=== PATIENT | female | born 1960 | race Caucasian/White ===

== ENCOUNTER 2017-04-20 19:30 | Emergency (ER) | payer SELFPAY ==
[~2017-04-20] VITALS: Ht 167.6 cm; Wt 97.5 kg
[2017-04-20] MEDS ORDERED: Ketorolac 30mg Inj IV ONE (20:15)
[2017-04-20] MEDS ORDERED: Morphine Sulfate 4mg/ml Inj IVP ONE (20:15)
[2017-04-20] MEDS ORDERED: Metoclopramide 10mg/2ml Inj IVP ONE (20:15)
[2017-04-20] MEDS: Tamsulosin 0.4mg cap ORAL SCH ×2 (20:35→20:40)
[2017-04-20 20:57] LABS: APPEARANCE,URINE CLEAR; KETONES,URINE NEGATIVE (NEGATIVE); LEUKOCYTE ESTERASE ,URINE 2+ (NEGATIVE); NITRITE,URINE NEGATIVE (NEGATIVE); PH,URINE 6.5 (4.5-8.0); PROTEIN,URINE 1+ (NEGATIVE); UROBILINOGEN,URINE NORMAL MG/DL (0.0-1.0)
[2017-04-20 21:04] LABS: MEAN CORPUSCULAR HEMOGLOBIN 30.3 PG (27.0-31.0); MEAN CORPUSCULAR VOLUME 89 FL (80-99); MEAN PLATELET VOLUME 6.6 FL (6.5-10.1); PLATELET COUNT 268 K/UL (150-450); RED BLOOD COUNT 4.84 M/UL (4.20-5.40); RED CELL DISTRIBUTION WIDTH 11.1 % (11.6-14.8); WHITE BLOOD COUNT 16.7 K/UL (4.8-10.8)
[2017-04-20 21:06] LABS: BASOPHILS % (AUTO) 0.6 % (0.0-2.0); LYMPHOCYTES % (AUTO) 7.4 % (20.0-45.0); MONOCYTES % (AUTO) 5.4 % (1.0-10.0); NEUTROPHILS % (AUTO) 86.5 % (45.0-75.0)
[2017-04-20 21:21] LABS: ALBUMIN/GLOBULIN RATIO 1.2 (1.0-2.7); CALCIUM 9.4 mg/dL (8.6-10.2); CREATININE 1.3 mg/dL (0.5-0.9); GLOMERULAR FILTRATION RATE 42.4 mL/min (>60); POTASSIUM 3.8 mEQ/L (3.4-4.9); TOTAL PROTEIN 7.5 g/dL (6.6-8.7)
[2017-04-20 21:30] LABS: BACTERIA,URINE MANY /HPF; SQUAMOUS EPITHELIAL CELL,UR MANY /LPF (NONE/OCC)
[2017-04-20 21:47] LABS: BILIRUBIN,DIRECT 0.2 mg/dL (0.1-0.3)
[2017-04-20] MEDS ORDERED: cefTRIAXone 1 GM in NS 55 ML IVPB ONE (22:15)
[2017-04-20] MEDS ORDERED: KEFLEX500 MG ORAL (23:14)
[2017-04-20] MEDS ORDERED: NORCO 5-325 TA1 EACH ORAL (23:14)
[2017-04-20] MEDS ORDERED: TAMSULOSIN HCL0.4 MG ORAL (23:14)
[2017-04-20 23:50] VITALS: BP 156/80
--- NOTE | 2017-04-21 00:39 | Emergency Room Report ---
History of Present Illness General Chief Complaint: Lower Back Pain or Injury Source: Patient Present Illness HPI Patient 56 is-year-old female who presented after increased left sided flank pain. She reports having increased vomiting intermittently. Pain began approximately 3 days ago. Patient had not been moved in location. She had having any hematemesis or fever. She denied any chills. She denied any dysuria are discolored urine. She prior history of kidney stones. Had prior lithotripsy Allergies: Coded Allergies: No Known Allergies (Unverified , 04/20/17) Patient History Past Medical History: see triage record Last Menstrual Period: NONE ANYMORE Now: No : 3 Reviewed Nursing Documentation: PMH: Agreed, PSxH: Agreed Review of Systems All Other Systems: negative except mentioned in HPI Physical Exam Vital Signs Date Time Temp Pulse Resp B/P Pulse Ox O2 Delivery O2 Flow Rate FiO2 04/20/17 19:46 99.0 88 18 160/82 97 Room Air Sp02 EP Interpretation: reviewed, normal General Appearance: normal inspection, well appearing, no apparent distress, alert, GCS 15, obese Head: atraumatic ENT: normal ENT inspection, hearing grossly normal, normal voice Neck: normal inspection, full range of motion, supple, no bony tend Respiratory: normal inspection, lungs clear, normal breath sounds, no respiratory distress, no retraction, no wheezing Cardiovascular #1: regular rate, rhythm, no edema Gastrointestinal: normal inspection, normal bowel sounds, non tender, soft, no guarding, no hernia Genitourinary: no CVA tenderness Musculoskeletal: normal inspection, back normal, normal range of motion Neurologic: normal inspection, alert, oriented x3, responsive, sign carpenter III-XII nml as tested, motor strength/tone normal, speech normal Psychiatric: normal inspection, judgement/insight normal, mood/affect normal Skin: normal inspection, normal color, no rash Medical Decision Making Diagnostic Impression: Primary Impression: Renal calculus Additional Impressions: Fatty liver Splenomegaly ER Course Patient presented for flank pain. Differential diagnosis included was not limited to pneumonia, renal stone, rib fracture, pulmonary embolism, ulcer, enteritis, pyelonephritis among others. Because of complexity of patient's case laboratory testing and imaging studies were ordered. I laboratory testing showed mildly elevated white blood count. Patient was given IV Rocephin. I urinalysis showed evidence of minimal urinary tract infection. CT the head and pelvis read by radiology shows 6 mm left renal stone as well as fatty liver and enlarged spleen. The patient is advised dietary modification. The patient was given medications as per orders and stated that she felt better want to go home. The patient is advised return precautions. Last Vital Signs Date Time Temp Pulse Resp B/P Pulse Ox O2 Delivery O2 Flow Rate FiO2 04/20/17 23:50 99.0 89 18 156/80 97 Room Air Status: improved Disposition: HOME, SELF-CARE Condition: Stable Scripts Hydrocodone Bit/Acetaminophen 5-325* (NORCO 5-325*) 1 Each Tablet 1 TAB ORAL Q6H Y for For Pain, #15 TAB 0 Refills Prov: Ming Elias 04/20/17 Tamsulosin Hcl (TAMSULOSIN HCL*) 0.4 Mg Cap.er.24h 0.4 MG ORAL BEDTIME, #14 CAP Prov: Ming Elias 04/20/17 Cephalexin* (KEFLEX*) 500 Mg Capsule 500 MG ORAL Q6H, #28 CAP 0 Refills Prov: Ming Elias 04/20/17 Patient Instructions: Kidney Stones Ming Elias Apr 21, 2017 00:39
--- NOTE | 2017-04-21 13:32 | Diagnostic Imaging Report ---
Clinical Indication: Abdominal pain Technique: No oral contrast utilized, per emergency room physician request IV administration nonionic contrast. Venous phase spiral acquisition obtained through the abdomen and pelvis. Multiplanar reconstructions were generated. Total dose length product 1001 mGycm. CTDIvol(s) 19 mGy. Dose reduction achieved using automated exposure control Comparison: None Findings: There is a 6 mm calcification within the left renal pelvis. There is mild left hydronephrosis and proximal hydroureter. There is periureteral fat stranding along the course of left ureter. A calcification is seen adjacent to but not within the distal left ureter there is minimal fullness to the right renal collecting system and a prominent right renal pelvis. There is mild left perinephric fat stranding. No focal parenchymal abnormality demonstrated. Calcifications are seen within the gallbladder fossa without a distinct gallbladder demonstrated. Liver is diffusely hypoattenuating without focal abnormality. No biliary ductal dilatation. Pancreas is unremarkable. The spleen is borderline enlarged, measuring 14 cm long axis dimension. The adrenals are unremarkable. The appendix is normal. No evidence of diverticulosis or diverticulitis. A few small bowel loops are mildly prominent fluid-filled, but not frankly distended. No free or loculated intraperitoneal air or fluid is evident. Distal esophagus, stomach, duodenum are unremarkable. Bones demonstrate mild degenerative spondylosis changes. Included lung bases are clear. Impression: Left perinephric and periureteral fat stranding. Appearance concerning for acute pyelonephritis. Mild left hydronephrosis, of uncertain etiology as no definite obstructing lesion is demonstrated. There is a nonobstructing 6 mm calculus in the left renal pelvis Calcifications in the gallbladder fossa, without clearly visualized gallbladder. Findings most likely represent cholelithiasis within a contracted gallbladder. No biliary ductal dilatation Fatty liver Mild splenomegaly Somewhat prominent fluid-filled small bowel loops, could indicate mild enteritis changes. Correlate with clinical findings Other findings as noted, including degenerative spondylosis This agrees with the preliminary interpretation provided overnight by [facility] service. The CT scanner at [facility] is accredited by the [employer] and the scans are performed using protocols designed to limit radiation exposure to as low as reasonably achievable to attain images of sufficient resolution adequate for diagnostic evaluation.
== END 2017-04-21 01:54 | disposition home or self-care (01) ==
LOC: EMR 20:02
DX: N13.2 Hydronephrosis with renal and ureteral calculous obstruction (principal); K76.0 Fatty (change of) liver, not elsewhere classified; R16.1 Splenomegaly, not elsewhere classified
CPT/HCPCS: 36415; 74177; 80053; 81003; 82248; 83690; 85025; 85610; 85730; 87086; 96374; 96375; 99284; J0696; J1885; J2270; J2765; Q9967